=== PATIENT | female | born 1955 | race Caucasian/White ===

== ENCOUNTER → 2016-09-25 | Outpatient (CLI) | payer BC ==
[2016-09-25 14:41] LABS: BLOOD UREA NITROGEN 23 MG/DL (7-18); CREATININE FOR GFR 0.84 MG/DL (0.55-1.02); GLOMERULAR FILTRATION RATE > 60.0 (>45)
== END ==
LOC: M LAB 13:33
PROVIDERS: ATTEND Physician Assistant Surgical
DX: Z01.812 Encounter for preprocedural laboratory examination (principal); M54.5 Low back pain

== ENCOUNTER → 2019-10-12 | Outpatient (CLI) | payer BC, MEDICAID ==
[~2019-10-12] MED LIST: METHACHOLINE KIT (J7674) INH ONE
--- NOTE | 2019-10-12 09:42 | PFTRPT ---
Site: [facility], [address] [place], [address] ID: [id number] Name: MITRA NOEL Visit Date: 10/12/2019 Second ID: [id number] Referring Doctor: LAYO CARTER Reviewing Doctor: Willis Schaeffer MD Assistant Branch Manager: Matteo ANDUJAR RRT Age: 63 : 1955 Sex: Female Race: Height: 61.00 Inches Weight: 168.00 Lbs BSA: 1.75 Order IDs: [id number] Requested Test(s): <RESP-PFT.METH CHAL> Diagnosis: R05 of albuterol for postbronchodilator. Review Status: Not Reviewed Pre-Bronch Post-Bronch Pred Actual %Pred Actual %Chng SPIROMETRY FVC (L) 2.84 2.60 91 2.59 FEV1 (L) 2.17 2.21 102 2.14 -3 FEV1/FVC (%) 77 85 110 83 -3 FEF 25% (L/sec) 4.57 6.38 139 5.65 -11 FEF 50% (L/sec) 3.52 3.69 104 2.98 -19 FEF 75% (L/sec) 1.12 0.98 87 0.78 -20 FEF 25-75% (L/sec) 2.01 2.67 132 2.27 -15 FEF Max (L/sec) 5.62 6.78 120 6.10 -9 FIVC (L) 2.79 2.70 -2 FIF 50% (L/sec) 3.38 4.24 125 4.19 -1 FIF Max (L/sec) 4.58 4.25 -7 Expiratory Time (sec) 6.70 7.08 5 Back Extrap Vol (L) 0.06 0.10 57 Time To FEFmax (sec) 0.056 0.075 32
== END ==
LOC: M CARPUL 08:31
PROVIDERS: ATTEND Nurse Practitioner Family
DX: R05 Cough (principal)
CPT/HCPCS: 94070; 95070; J7674

== ENCOUNTER → 2020-07-31 | Outpatient (CLI) | payer BC ==
--- NOTE | 2020-07-31 11:57 | REPMRS ---
Patient History The patient states she had a clinical breast exam in 2019. Family history of endometrial cancer at age 50 or over in maternal aunt, ovarian cancer under age 50 in maternal aunt. No Hormone Replacement Therapy 3D TOMOSYNTHESIS WAS PERFORMED. The Elvis Jo lifetime risk for breast cancer is 6.7%. Volpara breast density b. Digital Woman Screen Mammo: July 31, 2020 - Exam #: [id number] Bilateral CC and MLO view(s) were taken. Technologist: Nadine Osuna, Technologist Prior study comparison: April 06, 2018, bilateral digital woman screen mammo performed at [facility]. September 28, 2014, digital woman screen mammo performed at [facility]. FINDINGS: There are scattered fibroglandular densities. There has been no change in the appearance of the mammogram from the prior studies. There is a mild amount of residual fibroglandular tissue which is fairly symmetric. There is no interval development of dominant mass, architectural distortion, or clustered microcalcification suggestive of malignancy. Assessment: BI-RADS/ACR category 1 mammogram. Negative Mammogram. Recommendation Routine screening mammogram in 1 year (for women over age 40). This mammogram was interpreted with the aid of an FDA-approved computer-aided dectection system. Electronically Signed By: Sumit Cunningham MD 07/31/20 [id number]
== END ==
LOC: M WHC 11:11
PROVIDERS: ATTEND Internal Medicine
DX: Z12.31 Encounter for screening mammogram for malignant neoplasm of breast (principal)

== ENCOUNTER → 2021-05-29 | Outpatient (REF) | payer BC, MEDICARE | LOC: M LAB REF 19:16 | PROVIDERS: ATTEND Dermatology | DX: L72.11 Pilar cyst (principal) ==

== ENCOUNTER → 2022-07-15 | Outpatient (REF) | payer MEDICARE, BC | LOC: M SFHCDERM 14:35 | PROVIDERS: ATTEND Physician Assistant | DX: C44.41 Basal cell carcinoma of skin of scalp and neck (principal) ==

== ENCOUNTER → 2022-12-18 | Outpatient (CLI) | payer MEDICARE, BC | LOC: M WUC 15:07 | PROVIDERS: ATTEND Internal Medicine | DX: M19.011 Primary osteoarthritis, right shoulder (principal); M25.511 Pain in right shoulder ==

== ENCOUNTER → 2024-03-15 | Outpatient (REF) | payer MEDICARE | LOC: M SFHCDERM 17:10 | PROVIDERS: ATTEND Physician Assistant | DX: L60.3 Nail dystrophy (principal) ==

== ENCOUNTER → 2025-06-17 | Outpatient (REF) | payer MEDICARE ==
[2025-06-17 13:02] LABS: BASOPHILS 3 % (0-1); EOSINOPHILS 3 % (0-3); LYMPHOCYTES 45 % (16-44); MONOCYTES 3 % (0-5); NEUTROPHILS 45 % (28-66); PLATELET ESTIMATE NORMAL (NORMAL)
== END ==
LOC: M LAB REF 12:18
PROVIDERS: ATTEND Internal Medicine
DX: D72.9 Disorder of white blood cells, unspecified (principal); J30.9 Allergic rhinitis, unspecified